=== PATIENT | male | born 1970 | race Caucasian/White ===

== ENCOUNTER 2021-11-12 09:21 | Inpatient (IN) | payer OTHER ==
[~2021-11-12] VITALS: Ht 175.3 cm; Wt 66.6 kg
[~2021-11-12 09:21] MED LIST: NOCURR
[2021-11-12 11:01] LABS: BASOPHILS % (AUTO) 0.8 % (0.0-2.0); EOSINOPHILS % (AUTO) 0.7 % (1.0-6.0); HEMATOCRIT 41.2 % (41-53); HEMOGLOBIN 13.8 g/dL (13.5-17.5); LYMPHOCYTES % (AUTO) 18.4 % (22.0-44.0); MEAN CORPUSCULAR HEMOGLOBIN 29.1 pg (26.0-34.0); MEAN CORPUSCULAR HGB CONC 33.5 G/dL (31.0-37.0); MEAN CORPUSCULAR VOLUME 87 fL (80-100); MONOCYTES # (AUTO) 0.2 K/uL (0.1-1.0); MONOCYTES % (AUTO) 3.6 % (2.0-9.0); NEUTROPHILS % (AUTO) 76.5 % (40.0-70.0); PLATELET COUNT (AUTO) 163 K/uL (150-450); RED BLOOD CELL COUNT(AUTO) 4.73 MIL/uL (4.50-5.90); RED CELL DISTRIBUTION WIDTH 13.6 % (11.5-14.5)
[2021-11-12 11:13] LABS: COVID AG,FIA SOURCE NASOPHARYNGEAL
[2021-11-12 11:20] LABS: ANION GAP 6 mmol/L (8-16); CALCIUM, TOTAL 9.5 mg/dL (8.8-10.5); CARBON DIOXIDE 28 mmol/L (22-29); CHLORIDE 105 mmol/L (98-107); CREATININE 0.56 mg/dL (0.60-1.30); GLUCOSE,RANDOM 111 mg/dL (70-110); POTASSIUM 3.8 mmol/L (3.5-5.1); SODIUM SERUM 139 mmol/L (136-145); UREA NITROGEN, BLOOD 14 mg/dL (7-18)
[2021-11-12 11:21] LABS: GLOMERULAR FILTR. RATE CALC > 60 mL/min (>60)
[2021-11-12 11:25] LABS: ALANINE AMINOTRANSFERASE 51 U/L (12-78); ALBUMIN 3.7 g/dL (3.4-5.0); ALKALINE PHOSPHATASE 70 U/L (46-116); ASPARTATE AMINOTRANSFERASE 32 U/L (15-37); BILIRUBIN,TOTAL 0.5 mg/dL (0.1-1.0); TOTAL PROTEIN, SERUM 7.8 g/dL (6.4-8.2)
[2021-11-12] MEDS ORDERED: ACETAMINOPHEN 325 MG TABLET PO PRN (12:30)
[2021-11-12] MEDS ORDERED: 0.9% SODIUM CHLORIDE 10 ML SYRINGE IVP PRN (12:30)
[2021-11-12] MEDS ORDERED: ONDANSETRON HCL 4 MG/2 ML VIAL IVP PRN (12:30)
[2021-11-12] MEDS ORDERED: MAGNESIUM HYDROXIDE SUSPENSION 30 ML UDCUP PO PRN (13:15)
[2021-11-12] MEDS ORDERED: SODIUM CHLORIDE 0.9% 1,000 ML IV ONE (13:30)
[2021-11-12] MEDS: ONDANSETRON HCL 4 MG/2 ML VIAL IVP PRN (16:59)
[2021-11-12] MEDS: LORazepam 2 MG/ML VIAL IVP PRN (16:59)
[2021-11-12 21:55] VITALS: BP 133/80
[2021-11-13 04:40] VITALS: BP 112/76
[2021-11-13 07:13] LABS: AMPHET/METH SCREEN,URINE POSITIVE (NEGATIVE); BARBITURATE SCREEN, URINE NEGATIVE (NEGATIVE); BENZODIAZEPINES SCREEN,URINE NEGATIVE (NEGATIVE); CANNABINOID SCREEN,URINE NEGATIVE (NEGATIVE); COCAINE SCREEN,URINE POSITIVE (NEGATIVE); METHADONE SCREEN, URINE NEGATIVE (NEGATIVE); OPIATE SCREEN,URINE POSITIVE (NEGATIVE)
[2021-11-13 07:14] LABS: PHENCYCLIDINE SCREEN,URINE NEGATIVE (NEGATIVE)
[2021-11-13] MEDS: FAMOTIDINE 20 MG TABLET PO SCH (08:36)
[2021-11-13] MEDS: ONDANSETRON HCL 4 MG/2 ML VIAL IVP PRN ×2 (08:37→18:48)
[2021-11-13] MEDS ORDERED: SODIUM CHLORIDE 0.9% 1,000 ML IV ONE (09:45)
[2021-11-13 10:02] VITALS: BP 110/69
[2021-11-13 16:04] VITALS: BP 118/79
[2021-11-13] MEDS: LORazepam 2 MG/ML VIAL IVP PRN (18:57)
[2021-11-13 19:45] VITALS: BP 108/64
[2021-11-14 04:05] VITALS: BP 118/71
[2021-11-14] MEDS: FAMOTIDINE 20 MG TABLET PO SCH (08:41)
[2021-11-14 08:52] VITALS: BP 122/77
[2021-11-14] MEDS: ACETAMINOPHEN 325 MG TABLET PO PRN (10:42)
[2021-11-14] MEDS: ONDANSETRON HCL 4 MG/2 ML VIAL IVP PRN (10:42)
[2021-11-14 12:08] VITALS: BP 123/73
[2021-11-14 16:42] VITALS: BP 101/66
[2021-11-14 19:36] VITALS: BP 114/68
[2021-11-14] MEDS: ZOLPIDEM TARTRATE 5 MG TABLET PO PRN (21:00)
[2021-11-15 04:32] VITALS: BP 108/67
[2021-11-15 07:24] LABS: BASOPHILS % (AUTO) 0.5 % (0.0-2.0); EOSINOPHILS % (AUTO) 0.4 % (1.0-6.0); HEMOGLOBIN 15.7 g/dL (13.5-17.5); LYMPHOCYTES # (AUTO) 1.7 K/uL (1.0-4.8); LYMPHOCYTES % (AUTO) 24.7 % (22.0-44.0); MEAN CORPUSCULAR HEMOGLOBIN 29.2 pg (26.0-34.0); MEAN CORPUSCULAR VOLUME 86 fL (80-100); MONOCYTES # (AUTO) 0.4 K/uL (0.1-1.0); NEUTROPHILS # (AUTO) 4.7 K/uL (1.8-7.7); NEUTROPHILS % (AUTO) 68.4 % (40.0-70.0); PLATELET COUNT (AUTO) 173 K/uL (150-450); RED BLOOD CELL COUNT(AUTO) 5.37 MIL/uL (4.50-5.90); RED CELL DISTRIBUTION WIDTH 13.5 % (11.5-14.5)
[2021-11-15 07:38] LABS: ANION GAP 7 mmol/L (8-16); CALCIUM, TOTAL 9.1 mg/dL (8.8-10.5); CARBON DIOXIDE 27 mmol/L (22-29); CHLORIDE 101 mmol/L (98-107); GLUCOSE,RANDOM 109 mg/dL (70-110); POTASSIUM 3.3 mmol/L (3.5-5.1); SODIUM SERUM 135 mmol/L (136-145); UREA NITROGEN, BLOOD 12 mg/dL (7-18)
[2021-11-15 07:39] LABS: GLOMERULAR FILTR. RATE CALC > 60 mL/min (>60)
[2021-11-15 08:00] VITALS: BP 119/77
[2021-11-15] MEDS: FAMOTIDINE 20 MG TABLET PO SCH (08:47)
[2021-11-15 16:24] VITALS: BP 116/75
[2021-11-15] MEDS ORDERED: POTASSIUM CHLORIDE 20 MEQ ER TABLET PO ONE (17:15)
[2021-11-15 18:00] VITALS: BP 113/81
[2021-11-15 19:50] VITALS: BP 96/63
[2021-11-15] MEDS: ZOLPIDEM TARTRATE 5 MG TABLET PO PRN (20:36)
[2021-11-16 03:50] VITALS: BP 121/77
[2021-11-16 07:51] VITALS: BP 113/71
[2021-11-16] MEDS: ACETAMINOPHEN 325 MG TABLET PO PRN (08:01)
[2021-11-16] MEDS: FAMOTIDINE 20 MG TABLET PO SCH (08:01)
[2021-11-16 10:08] LABS: ANION GAP 4 mmol/L (8-16); CALCIUM, TOTAL 9.1 mg/dL (8.8-10.5); CARBON DIOXIDE 31 mmol/L (22-29); CHLORIDE 101 mmol/L (98-107); CREATININE 0.85 mg/dL (0.60-1.30); GLUCOSE,RANDOM 110 mg/dL (70-110); POTASSIUM 3.9 mmol/L (3.5-5.1); SODIUM SERUM 136 mmol/L (136-145); UREA NITROGEN, BLOOD 10 mg/dL (7-18)
[2021-11-16 10:09] LABS: GLOMERULAR FILTR. RATE CALC > 60 mL/min (>60)
== END 2021-11-16 13:10 | DRG 897 ==
LOC: EMS 09:25 → 6S 18:39
PROVIDERS: ADMIT Internal Medicine; ATTEND Internal Medicine
DX: F11.23 Opioid dependence with withdrawal (principal); Z20.822 Contact with and (suspected) exposure to COVID-19; Z79.899 Other long term (current) drug therapy
CPT/HCPCS: 80048; 80053; 84484; 85025; 93005; 99285; G0480; J2060; J2405; J7030

== ENCOUNTER 2021-11-16 15:05 | Emergency (ER) | payer OTHER ==
[~2021-11-16] VITALS: Ht 175.3 cm; Wt 61.4 kg
[2021-11-16] MEDS ORDERED: SODIUM CHLORIDE 0.9% 1,000 ML IV ONE (16:15)
[2021-11-16 17:20] VITALS: BP 102/67
== END 2021-11-16 18:01 | disposition left against medical advice (07) ==
LOC: EMS 15:14
DX: R10.84 Generalized abdominal pain (principal); F15.90 Other stimulant use, unspecified, uncomplicated
CPT/HCPCS: 99283; Z7502

== ENCOUNTER 2021-11-16 20:42 | Inpatient (IN) | payer OTHER ==
[~2021-11-16] VITALS: Ht 175.3 cm; Wt 65.2 kg
[2021-11-16 21:47] LABS: COVID AG,FIA SOURCE NASAL SWAB
[2021-11-16 22:05] LABS: BASOPHILS % (AUTO) 0.8 % (0.0-2.0); EOSINOPHILS % (AUTO) 0.6 % (1.0-6.0); HEMATOCRIT 48.1 % (41-53); HEMOGLOBIN 16.2 g/dL (13.5-17.5); LYMPHOCYTES # (AUTO) 2.1 K/uL (1.0-4.8); LYMPHOCYTES % (AUTO) 18.9 % (22.0-44.0); MEAN CORPUSCULAR HEMOGLOBIN 29.3 pg (26.0-34.0); MEAN CORPUSCULAR HGB CONC 33.8 G/dL (31.0-37.0); MEAN CORPUSCULAR VOLUME 87 fL (80-100); MONOCYTES # (AUTO) 0.7 K/uL (0.1-1.0); MONOCYTES % (AUTO) 6.1 % (2.0-9.0); NEUTROPHILS # (AUTO) 8.1 K/uL (1.8-7.7); NEUTROPHILS % (AUTO) 73.6 % (40.0-70.0); PLATELET COUNT (AUTO) 193 K/uL (150-450); RED BLOOD CELL COUNT(AUTO) 5.53 MIL/uL (4.50-5.90); RED CELL DISTRIBUTION WIDTH 13.6 % (11.5-14.5)
[2021-11-16 22:15] LABS: ANION GAP 8 mmol/L (8-16); CALCIUM, TOTAL 9.8 mg/dL (8.8-10.5); CARBON DIOXIDE 28 mmol/L (22-29); CHLORIDE 101 mmol/L (98-107); CREATININE 0.85 mg/dL (0.60-1.30); GLUCOSE,RANDOM 97 mg/dL (70-110); POTASSIUM 3.4 mmol/L (3.5-5.1); SODIUM SERUM 137 mmol/L (136-145); UREA NITROGEN, BLOOD 14 mg/dL (7-18)
[2021-11-16 22:21] LABS: ALANINE AMINOTRANSFERASE 35 U/L (12-78); ALBUMIN 4.1 g/dL (3.4-5.0); ALKALINE PHOSPHATASE 88 U/L (46-116); ASPARTATE AMINOTRANSFERASE 14 U/L (15-37); BILIRUBIN,TOTAL 0.2 mg/dL (0.1-1.0); GLOMERULAR FILTR. RATE CALC > 60 mL/min (>60)
[2021-11-16 22:24] LABS: APPEARANCE,URINE HAZY (CLEAR); BILIRUBIN,URINE NEGATIVE (NEGATIVE); GLUCOSE, URINE (UA) NEGATIVE (NEGATIVE); KETONES,URINE NEGATIVE (NEGATIVE); LEUKOCYTE ESTERASE ,URINE SMALL (NEGATIVE); NITRATE,URINE NEGATIVE (NEGATIVE); OCCULT BLOOD,URINE NEGATIVE (NEGATIVE); PH,URINE 5.5 (5.0-8.0); PROTEIN,URINE TRACE mg/dL (NEGATIVE); SPECIFIC GRAVITIY, URINE 1.032 (1.003-1.030); UROBILINOGEN,URINE <=1.0 mg/dL (<=1.0)
[2021-11-16 22:28] LABS: AMPHET/METH SCREEN,URINE NEGATIVE (NEGATIVE); BARBITURATE SCREEN, URINE NEGATIVE (NEGATIVE); BENZODIAZEPINES SCREEN,URINE NEGATIVE (NEGATIVE); CANNABINOID SCREEN,URINE NEGATIVE (NEGATIVE); COCAINE SCREEN,URINE NEGATIVE (NEGATIVE); METHADONE SCREEN, URINE NEGATIVE (NEGATIVE); OPIATE SCREEN,URINE NEGATIVE (NEGATIVE)
[2021-11-16 22:31] LABS: RBC,URINE 0-2 /HPF (0-2)
[2021-11-16 22:32] LABS: BACTERIA,URINE Many /HPF (None Seen); PHENCYCLIDINE SCREEN,URINE NEGATIVE (NEGATIVE); SQUAMOUS EPITHELIAL CELL,UR Few /LPF (None Seen)
[2021-11-16 23:45] VITALS: BP 115/85
[2021-11-17] MEDS ORDERED: LORazepam 1 MG TABLET PO PRN (01:15)
[2021-11-17] MEDS: ZOLPIDEM TARTRATE 5 MG TABLET PO PRN ×2 (01:32→20:04)
[2021-11-17 05:24] VITALS: BP 126/86
[2021-11-17] MEDS ORDERED: POTASSIUM CHL 10 MEQ/WATER 50 ML IV PRN ×2 (06:15→12:15)
[2021-11-17] MEDS ORDERED: MAGNESIUM HYDROXIDE SUSPENSION 30 ML UDCUP PO PRN (06:15)
[2021-11-17] MEDS ORDERED: ONDANSETRON HCL 4 MG/2 ML VIAL IVP PRN (06:15)
[2021-11-17] MEDS ORDERED: POTASSIUM CHLORIDE 20 MEQ ER TABLET PO PRN ×2 (06:15→12:15)
[2021-11-17 08:02] VITALS: BP 133/60
[2021-11-17] MEDS: FAMOTIDINE 20 MG TABLET PO SCH (09:08)
[2021-11-17 15:40] VITALS: BP 117/68
[2021-11-17] MEDS: CEPHALEXIN MONOHYDRATE 500 MG CAPSULE PO SCH (15:57)
[2021-11-17] MEDS: ACETAMINOPHEN 325 MG TABLET PO PRN ×2 (15:59→20:04)
[2021-11-17 20:10] VITALS: BP 111/52
[2021-11-18] MEDS: CEPHALEXIN MONOHYDRATE 500 MG CAPSULE PO SCH ×4 (00:09→23:17)
[2021-11-18 06:31] VITALS: BP 123/76
[2021-11-18] MEDS: FAMOTIDINE 20 MG TABLET PO SCH (07:59)
[2021-11-18 08:35] VITALS: BP 126/98
[2021-11-18 15:51] VITALS: BP 122/74
[2021-11-18 19:45] VITALS: BP 120/79
[2021-11-18] MEDS: ACETAMINOPHEN 325 MG TABLET PO PRN (23:18)
[2021-11-19 04:45] VITALS: BP 130/81
[2021-11-19] MEDS: CEPHALEXIN MONOHYDRATE 500 MG CAPSULE PO SCH ×3 (08:00→23:24)
[2021-11-19] MEDS: FAMOTIDINE 20 MG TABLET PO SCH (08:26)
[2021-11-19] MEDS ORDERED: CEPH-558 PO (10:14)
[2021-11-19] MEDS ORDERED: MAGN-169 PO (10:15)
[2021-11-19] MEDS ORDERED: ACET-2247 PO (10:15)
[2021-11-19 15:14] VITALS: BP 129/90
[2021-11-19 19:50] VITALS: BP 120/64
[2021-11-19] MEDS: ACETAMINOPHEN 325 MG TABLET PO PRN (23:28)
== END 2021-11-20 08:30 | DRG 690 ==
LOC: EMS 21:09 → 6S 23:33
PROVIDERS: ADMIT Internal Medicine; ATTEND Internal Medicine
DX: N39.0 Urinary tract infection, site not specified (principal); F11.13 Opioid abuse with withdrawal; F10.10 Alcohol abuse, uncomplicated; Z20.822 Contact with and (suspected) exposure to COVID-19; Y90.9 Presence of alcohol in blood, level not specified; F41.9 Anxiety disorder, unspecified; E87.6 Hypokalemia; Z91.199 Patient's noncompliance with other medical treatment and regimen due to unspecified reason
CPT/HCPCS: 80053; 81001; 85025; 87086; 93005; 99285; G0480